=== PATIENT | male | born 1975 | race African-American/Black ===

== ENCOUNTER 2019-05-20 12:54 | Outpatient (CLI) | payer BC ==
--- NOTE | 2019-05-20 14:14 | MRI ---
MRI Lumbar Spine WO Con History: M54.5 low back pain Comparison: Lumbar spine radiograph 2005 Findings: The muscle mass degrades the images of the 3 [place] magnet first there is inadequate signal. No hydronephrosis. Paraspinal musculature is symmetric. Large cyst inferior pole left kidney. No retroperitoneal periaortic adenopathy. Conus medullaris terminates in the superior endplate of L1. No marrow infiltrative process. Levels are as follows: L1/L2: Normal disc. No neural foraminal or spinal canal narrowing. L2/L3: Small right subforaminal disc osteophyte complex. No neural foraminal or spinal canal narrowin g. L3/L4: Mild facet arthropathy. No neural foraminal or spinal canal narrowing. Small right subforamina l disc osteophyte complex. L4/L5: Small bilateral disc osteophyte complexes in the subforaminal zone. Moderate bilateral neural foraminal narrowing. Mild facet arthropathy. L5/S1: Mild disc desiccation. Mild posterior degenerative disc space height loss and broad-based post erior discussed by complex. Mild facet arthropathy. Moderate left and mild right neural foraminal narrowing with abutment of the left exiting nerve root. Impression: [id number] spondylosis as described greatest in the lower lumbar spine. No acute in jury. No disc herniation.
== END 2019-05-20 12:55 | disposition home or self-care (01) ==
LOC: TBSIIMAG 12:54
PROVIDERS: ATTEND Neurological Surgery
DX: M48.061 Spinal stenosis, lumbar region without neurogenic claudication (principal); M54.5 Low back pain; M47.816 Spondylosis without myelopathy or radiculopathy, lumbar region
CPT/HCPCS: 72148

== ENCOUNTER 2019-09-27 10:31 | Outpatient (CLI) | payer BC ==
--- NOTE | 2019-09-27 11:43 | RAD ---
LUMBAR SPINE 2 VIEWS: Date: 09/27/2019 INDICATION: Low back pain. COMPARISON: None. FINDINGS: No acute fracture or subluxation is evident. Spinal alignment is preserved. Vertebral body heights ar e within normal limits. SI joints are normal appearing. IMPRESSION: Radiographically normal lumbar spine. POS: CET
== END 2019-09-27 10:32 | disposition home or self-care (01) ==
LOC: TBSIIMAG 10:31
PROVIDERS: ATTEND Neurological Surgery
DX: M54.5 Low back pain (principal)
CPT/HCPCS: 72100

== ENCOUNTER 2019-11-10 13:36 | Outpatient (CLI) | payer BC ==
--- NOTE | 2019-11-10 16:39 | MRI ---
MRI LUMBAR SPINE WITH AND WITHOUT CONTRAST: DATE: 11/10/19 HISTORY: 43-year-old male with ICD-10: M51.36 lumbar degenerative disc disease. Low back pain and swelling af ter surgery. COMPARISON: 05/20/19. TECHNIQUE: Multiple sequences obtained in axial and sagittal planes, pre and post IV injection of gadolinium-bas ed contrast agent. FINDINGS: For the purposes of this report, there will be assumed that there are five lumbar type vertebrae. Vertebral body heights are maintained. Alignment is normal. No disc space narrowing at any level. No high grade disc desiccation at any level. Spinal canal is diffusely slightly small in caliber on a developmental basis due to congenitally slig htly short pedicles. Prominent posterior epidural fat pads throughout multiple levels further decreas e the caliber of the thecal sac. There are new midline laminectomy defects at L4-5 and L5-1. There is postoperative enhancing retrospi nal soft tissues posterior to the posterior elements, centered at midline and encroaching up the bila teral posterior paraspinal musculature, left greater than right, from the laminectomy defects and pos terior edges of thecal sacs to the dorsa lumbar fascia. This enhancing soft tissue material extends s uperiorly at least to the level of the spinous process of L3, and mildly a few levels superior to it. There is also enhancing soft tissues in the interspinous ligament at L1-2, L2-3, and L3-4. There is also enhancing soft tissue in the subcutaneous fat posterior to the dorsal lumbar fascia, reaching th e dermis. T12-L1: Normal. Conus medullaris terminates at L1. L1-2: Normal. L2-3: Normal. L3-4: Normal. L4-5: Interval decrease in volume of the posterior epidural fat after laminectomy, resulting in incre ased caliber of the thecal sac, currently mild to moderate thecal sac stenosis. No central spinal can al stenosis. Mild chronic bilateral neural foraminal stenosis. Enhancing epidural tissues, either gra nulation tissue or scar tissue, circumferentially surrounding the thecal sac, and surrounding bilater al L5 nerve roots in the lateral recesses. No focal disc herniation. L5-S1: Similar diffuse enhancing tissues throughout the epidural space, surrounding the bilateral S1 nerve roots, lateral recesses, and surrounding the thecal sac. No bone marrow edema. No discitis/osteomyelitis. No epidural abscess. IMPRESSION: 1. Status post midline laminectomies at L4-5 and L5-S1. 2. Diffuse enhancing postoperative epidural tissues, either epidural granulation tissue or epidu ral scar tissue, throughout the spinal canal of L4-5 and L5-S1. 3. Large region of postsurgical enhancing tissues posterior to the spinal canal with edema and e nhancement. This could represent either scar tissue or cellulitis. JUAN Anderson POS: CET
== END 2019-11-10 13:37 | disposition home or self-care (01) ==
LOC: SCSMRI 13:36
PROVIDERS: ATTEND Neurological Surgery
DX: M51.36 Other intervertebral disc degeneration, lumbar region (principal); R60.0 Localized edema; Z98.890 Other specified postprocedural states
CPT/HCPCS: 72158